=== PATIENT | female | born 1960 | race Caucasian/White ===

== ENCOUNTER 2016-10-30 13:05 | Emergency (ER) | payer OTHER ==
[~2016-10-30] VITALS: Ht 165.1 cm; Wt 89.2 kg
[~2016-10-30 13:05] MED LIST: AMLODIPINE BESYL5 MG PO; ASPIRIN325 MG PO; BENICAR HCT 401 EAC1; BENICAR PO; CARVEDILOL3.125 MG PO; CO Q-10100 MG PO; COREG3.125 M1 PO; COREG6.25 M1 PO; CRESTOR20 MG PO; Ecotrin PO; FAMOTIDINE20 MG PO; HYDROCODON-ACE1 EAC7 PO; KLONOPIN1 MG PO; KLONOPIN2 MG PO; KLOR-CON M2020 MEQ PO; LIPITOR40 MG PO; LISINOPRIL10 MG PO; LISINOPRIL5 MG PO; LO-DOSE ASPIRIN81 M1 PO; NITROSTAT0.4 MG SL; NORCO 5/3251 TABLET PO; PLAVIX75 MG PO; PRAVACHOL40 MG PO; PROTONIX40 MG PO; SKELAXIN800 MG PO; SYNTHROID25 MCG PO; TYLENOL EXTRA500 MG PO; XANAX0.5 MG PO; ZESTRIL10 MG PO; ZOFRAN ODT4 MG PO; ZOLOFT100 MG PO; ZOLOFT50 MG PO
[2016-10-30 13:55] LABS: HEMATOCRIT 40.6 % (36.0-46.0); MEAN PLAT.VOLUME 9.6 uM^3 (9.5-12.4); PLATELET COUNT 248 K/uL (156-360); RBC DIS.WIDTH-CV 14.2 % (11.8-14.6); RBC DIS.WIDTH-SD 46.4 % (39-53); RED BLOOD COUNT 4.46 M/uL (3.80-5.20); WHITE BLOOD COUNT 5.7 K/uL (4.1-10.2)
[2016-10-30 14:04] LABS: CHLORIDE 108 mEq/L (99-109); POTASSIUM 4.5 mEq/L (3.7-5.4); SODIUM 143 mEq/L (136-147)
[2016-10-30 14:06] LABS: GLUCOSE 108 mg/dL (70-99)
[2016-10-30 14:08] LABS: ANION GAP 12 MEQ/L (2-14); TOTAL BILIRUBIN 0.6 mg/dL (0.0-1.0)
[2016-10-30 14:10] LABS: ALKALINE PHOSPHATASE 101 IU/L (3-129); GFR ESTIMATE (CALCULATED) > 59 mL/min/
[2016-10-30 14:11] LABS: UREA NITROGEN (BUN) 14 mg/dL (9-23)
[2016-10-30] MEDS ORDERED: ERYTHROMYC1 APPLICAT BOTH EYES (15:21)
[2016-10-30 15:37] VITALS: BP 133/68
== END 2016-10-30 15:37 | disposition home or self-care (01) ==
LOC: EME 13:05
PROVIDERS: Nurse Practitioner Family
DX: F32.9 Major depressive disorder, single episode, unspecified (principal); F41.1 Generalized anxiety disorder; E78.5 Hyperlipidemia, unspecified; I25.2 Old myocardial infarction; J44.9 Chronic obstructive pulmonary disease, unspecified; Z98.61 Coronary angioplasty status
CPT/HCPCS: 80053; 81003; 85027; 90839; 93005; 99281; 99284

== ENCOUNTER 2016-12-08 13:07 | Emergency (ER) | payer OTHER ==
[~2016-12-08] VITALS: Ht 165.1 cm; Wt 86.9 kg
[~2016-12-08 13:07] MED LIST changes: +ERYTHROMYC1 APPLICAT BOTH EYES
[2016-12-08] MEDS ORDERED: RANEXA500 MG PO (16:20)
[2016-12-08] MEDS ORDERED: LEVOTHYROXINE50 MCG PO (16:24)
[2016-12-08] MEDS ORDERED: FLEXERIL10 MG PO (17:10)
[2016-12-08] MEDS ORDERED: MOTRIN800 MG PO (17:10)
[2016-12-08 17:21] VITALS: BP 137/89
== END 2016-12-08 17:22 | disposition home or self-care (01) ==
LOC: EME 13:07
DX: S30.0XXA Contusion of lower back and pelvis, initial encounter (principal); S46.911A Strain of unspecified muscle, fascia and tendon at shoulder and upper arm level, right arm, initial encounter; W10.9XXA Fall (on) (from) unspecified stairs and steps, initial encounter; E78.5 Hyperlipidemia, unspecified; I25.2 Old myocardial infarction; Z98.61 Coronary angioplasty status; Z79.82 Long term (current) use of aspirin
CPT/HCPCS: 72100; 72220; 73030; 99281; 99284

== ENCOUNTER 2017-04-18 10:46 | Observation (INO) | payer OTHER ==
[~2017-04-18] VITALS: Ht 165.1 cm; Wt 83.5 kg
[~2017-04-18 10:46] MED LIST changes: +FLEXERIL10 MG PO; +LEVOTHYROXINE50 MCG PO; +MOTRIN800 MG PO; +RANEXA500 MG PO
[2017-04-18 11:34] LABS: HEMATOCRIT 40.1 % (36.0-46.0); MCH 29.9 PG (29.0-34.0); MCHC 32.2 G/DL (30.0-36.0); MCV 92.8 FL (83-99); PLATELET COUNT 257 K/uL (156-360); RBC DIS.WIDTH-CV 13.8 % (11.8-14.6); RBC DIS.WIDTH-SD 47.2 % (39-53); RED BLOOD COUNT 4.32 M/uL (3.80-5.20); WHITE BLOOD COUNT 4.9 K/uL (4.1-10.2)
[2017-04-18 11:47] LABS: CHLORIDE 108 mEq/L (99-109); SODIUM 143 mEq/L (136-147)
[2017-04-18 11:49] LABS: GLUCOSE 106 mg/dL (70-99)
[2017-04-18 11:49] LABS: ADD MIUA? NO; BILIRUBIN NEGATIVE; BLOOD NEGATIVE; COLOR YELLOW ((YELLOW)); GLUCOSE (STRIP) NEGATIVE; KETONES NEGATIVE; LEUKOCYTES NEGATIVE; NITRITE NEGATIVE; PROTEIN (STRIP) NEGATIVE; SPECIFIC GRAVITY 1.004 (1.000-1.030); UCUL ADDED? NO; UROBILINOGEN 0.2 MG/DL (0.2-1.0)
[2017-04-18 11:50] LABS: ANION GAP 6 MEQ/L (2-14)
[2017-04-18 11:53] LABS: GFR ESTIMATE (CALCULATED) > 59 mL/min/
[2017-04-18 11:54] LABS: UREA NITROGEN (BUN) 10 mg/dL (9-23)
[2017-04-18 11:56] LABS: TROP-I INTERPRETATION NEGATIVE; TROPONIN-I < 0.01 ng/mL (0.0-0.30)
[2017-04-18 14:15] LABS: TROP-I INTERPRETATION NEGATIVE; TROPONIN-I < 0.01 ng/mL (0.0-0.30)
[2017-04-18] MEDS ORDERED: LIPITOR80 MG PO (15:33)
[2017-04-18] MEDS ORDERED: ZESTRIL20 MG PO (15:34)
[2017-04-18] MEDS ORDERED: NORVASC5 MG PO (15:35)
[2017-04-18] MEDS ORDERED: FENOFIBRATE54 M1 PO (15:35)
[2017-04-18 16:34] VITALS: BP 132/78
[2017-04-18 18:25] VITALS: BP 103/58
[2017-04-18 23:32] LABS: TROP-I INTERPRETATION NEGATIVE; TROPONIN-I < 0.01 ng/mL (0.0-0.30)
[2017-04-19 00:05] VITALS: BP 102/68
[2017-04-19 04:55] VITALS: BP 96/65
[2017-04-19 06:14] LABS: HEMATOCRIT 39.7 % (36.0-46.0); MCH 29.9 PG (29.0-34.0); MCHC 32.5 G/DL (30.0-36.0); MCV 92.1 FL (83-99); MEAN PLAT.VOLUME 10.1 uM^3 (9.5-12.4); PLATELET COUNT 251 K/uL (156-360); RBC DIS.WIDTH-CV 13.8 % (11.8-14.6); RBC DIS.WIDTH-SD 47.1 % (39-53); RED BLOOD COUNT 4.31 M/uL (3.80-5.20); WHITE BLOOD COUNT 4.8 K/uL (4.1-10.2)
[2017-04-19 06:40] LABS: ANION GAP 9 MEQ/L (2-14); CHLORIDE 108 MEQ/L (99-109); GFR ESTIMATE (CALCULATED) > 59 mL/min/; GLUCOSE 89 mg/dL (70-99); POTASSIUM 4.2 MEQ/L (3.7-5.4); SAMPLE HEMOLYSIS CHECK 0; SAMPLE ICTERIC CHECK 0; SAMPLE LIPEMIA CHECK 0; SODIUM 142 MEQ/L (136-147); UREA NITROGEN (BUN) 15 mg/dL (9-23)
[2017-04-19 08:16] VITALS: BP 106/66
[2017-04-19 10:25] LABS: D-DIMER ELISA < 0.15 mg/L FEU (< 0.57)
== END 2017-04-19 10:56 | disposition home or self-care (01) ==
LOC: EXP 10:46 → EME 10:46 → 5WEST 14:06 → EDOF 14:06 → 5WEST 16:32
PROVIDERS: Hospitalist; Internal Medicine; Physician Assistant
DX: R07.89 Other chest pain (principal); I25.10 Atherosclerotic heart disease of native coronary artery without angina pectoris; Z95.5 Presence of coronary angioplasty implant and graft; I10 Essential (primary) hypertension; I25.2 Old myocardial infarction; Z86.74 Personal history of sudden cardiac arrest; E78.5 Hyperlipidemia, unspecified; F41.9 Anxiety disorder, unspecified; F32.9 Major depressive disorder, single episode, unspecified; E03.9 Hypothyroidism, unspecified; Z87.891 Personal history of nicotine dependence; Z82.49 Family history of ischemic heart disease and other diseases of the circulatory system; Z80.1 Family history of malignant neoplasm of trachea, bronchus and lung; Z80.8 Family history of malignant neoplasm of other organs or systems
CPT/HCPCS: 71020; 80048; 81003; 83880; 84484; 85027; 85379; 93005; 99281; 99285; G0378

== ENCOUNTER → 2017-10-25 | Outpatient (CLI) | payer OTHER ==
[~2017-10-25] VITALS: Ht 165.1 cm; Wt 85.3 kg
[~2017-10-25] MED LIST changes: +FENOFIBRATE54 M1 PO; +LIPITOR80 MG PO; +NORVASC5 MG PO; +ZESTRIL20 MG PO
== END | disposition home or self-care (01) ==
LOC: AMB 12:00
DX: Z12.11 Encounter for screening for malignant neoplasm of colon (principal); D12.3 Benign neoplasm of transverse colon; K63.5 Polyp of colon; K64.8 Other hemorrhoids; K59.00 Constipation, unspecified; I25.10 Atherosclerotic heart disease of native coronary artery without angina pectoris; Z95.5 Presence of coronary angioplasty implant and graft; K21.9 Gastro-esophageal reflux disease without esophagitis; E78.5 Hyperlipidemia, unspecified; I10 Essential (primary) hypertension; E03.9 Hypothyroidism, unspecified; I25.2 Old myocardial infarction; Z90.710 Acquired absence of both cervix and uterus; Z87.891 Personal history of nicotine dependence; Z79.82 Long term (current) use of aspirin
CPT/HCPCS: 88305; J2250